=== PATIENT | female | born 2000 | race Two or more races ===

== ENCOUNTER 2020-09-08 13:32 | Emergency (ER) | payer OTHER, SELFPAY ==
--- NOTE | ~2020-09-08 | XR_ITS ---
EXAMINATION: XR CHEST CLINICAL INFORMATION: Cough and SOB. COMPARISON: None TECHNIQUE: Frontal view of the chest was obtained. FINDINGS: No significant abnormality is noted involving the heart, lungs, mediastinum, bony thorax or soft tissues. XR/XR chest 1V IMPRESSION: Unremarkable chest exam
--- NOTE | 2020-09-08 14:02 | ECG_ITS ---
Test Reason : CHEST PAIN Blood Pressure : / mmHG Vent. Rate : 112 BPM Atrial Rate : 112 BPM P-R Int : 146 ms QRS Dur : 076 ms QT Int : 294 ms P-R-T Axes : 071 066 048 degrees QTc Int : 401 ms Sinus tachycardia Otherwise normal ECG No previous ECGs available Referred By: Generic ED Physician Electronically Signed By:VAMSI HAMILTON
[2020-09-08 14:08] VITALS: BP 129/79; PULSE 112; RESP 24; TEMP 36.9; O2SAT 96; BMI 27.8
[2020-09-08 16:07] VITALS: BP 116/69; PULSE 105; RESP 16; TEMP 37.8; O2SAT 95
--- NOTE | 2020-09-08 16:16 | ED.CHESTPAIN ---
HPI - Chest Pain General Chief Complaint: Chest Pain Stated Complaint: severe chest pain Time Seen by Provider: 09/08/20 16:15 Source: patient Mode of arrival: ambulatory Limitations: no limitations History of Present Illness HPI narrative: No significant past medical history strong family history of asthma and family , complaining of dry cough with wheezing see using albuterol inhaler but never been diagnosed for asthma complaining of chest pain when taking a deep breath with cough. No fever no chills no palpitation no leg swelling Related Data Previous Rx's Medication Instructions Recorded albuterol sulfate [Proventil HFA] 2 puff INHALATION Q4-6H PRN #8.5 g 09/08/20 azithromycin [Zithromax TRI-MAGDALENO] 500 mg PO DAILY 3 Days #3 tab 09/08/20 codeine-guaifenesin 10 ml PO Q6H PRN #237 ml 09/08/20 prednisone 40 mg PO DAILY #10 tab 09/08/20 Allergies Allergy/AdvReac Type Severity Reaction Status Date / Time No Known Allergies Allergy Unverified 12/13/19 16:57 Review of Systems Review of Systems: Constitutional : No Weight loss, No Fever, No Chills ENT/Mouth : No sore throat, No Rhinorrhea Eyes: No Eye Pain, No Swelling Cardiovascular : ++ Chest Pain, no palpitations Respiratory :+++ Cough, No Sputum, ++ shortness of breath Gastrointestinal : no Nausea, No Vomiting, No Diarrhea, No abdominal Pain, no black stools Genitourinary : No Dysuria, No Urinary Frequency Musculoskeletal : No joint pain, No Myalgias, No Joint Swelling Skin : No Skin Lesions, No rash Neuro : No Weakness, No Numbness, No Dizziness, No Headache Psych : No Anxiety/Panic, No Depression Heme/Lymph: No Bruising, No Lymphadenopathy Endocrine : No Polyuria, No Polydipsia All other systems reviewed and are negative [facility] Social History Social History Alcohol intake: never Patient Tobacco Use Status: Never used Tobacco Use of substances other than those prescribed or required for medical reasons: Yes Substance Use Type: Marijuana Advance Directives: Yes Advance Directives Information Provided: Yes Advance Directives on File: No Patient : No Physical Exam Vital Signs: Vital Signs: Last Vital Signs Temp 100.1 F 09/08/20 16:07 Pulse 104 H 09/08/20 16:47 Resp 16 09/08/20 16:07 BP 116/69 09/08/20 16:07 Pulse Ox 95 09/08/20 16:07 Body Mass Index 27.8 Appearance: Alert. Oriented X3. No acute distress. Frequent dry cough++ Eyes: PERRLA, No Nystagmus ENT: Pharynx normal. Oral Mucosa moist Neck: Normal inspection. Neck supple. CVS: Normal heart rate and rhythm. Pulses normal. Respiratory: No respiratory distress. Equal air entry bilateral, bilateral wheezing ++ no rales Abdomen: Soft and nontender. Bowel sounds are present, no mass palpable, no CVA tenderness Skin: Skin warm and dry. Normal skin color. Normal skin turgor. Extremities: No lower extremity edema. No calf tenderness Neuro: Oriented X 3. No motor deficit. No sensory deficit. MDM - Chest Pain MDM Narrative Medical decision making narrative: Patient likely with asthma chest x-ray negative will discharge patient home on Z-Magdaleno prednisone and albuterol Lab Data Attestation: I reviewed the patient's lab results. Labs: Lab Results 09/08/20 Range/Units 16:31 COVID-19 ([facility]OS[facility]) Negative (Negative) COVID-19 Clin Com See Note Discharge Plan Discharge Clinical Impression: Acute asthmatic bronchitis Patient Disposition: Home, Self-Care Instructions: Asthma (ED) Additional Instructions: Take medication as prescribed. Cough syrup as prescribed Antibiotic as advised Follow with PCP Prescriptions: New prednisone 20 mg tablet 40 mg PO DAILY Qty: 10 RF: 0 azithromycin [Zithromax TRI-MAGDALENO] 500 mg tablet 500 mg PO DAILY 3 Days Qty: 3 RF: 0 codeine-guaifenesin 10-100 mg/5 mL liquid 10 ml PO Q6H PRN (Reason: cough) Qty: 237 RF: 0 albuterol sulfate [Proventil HFA] 90 mcg/actuation HFA aerosol inhaler 2 puff inhalation Q4-6H PRN (Reason: shortness of breath or wheezing) Qty: 8.5 RF: 0
[2020-09-08] MEDS: guaiFEN/Codeine SF 200/20/10ML 10 ML LIQUID PO (16:30)
[2020-09-08] MEDS: predniSONE 20 MG TABLET 40 MG PO (16:30)
[2020-09-08] MEDS: Albuterol/Iprat 2.5/0.5MG 3 ML AMPUL.NEB INHALE (16:45)
[2020-09-08] MEDS: Albuterol Sulfate (0.083%) 2.5 MG/3 ML VIAL.NEB 5 MG INHALE (16:45)
[2020-09-08 16:47] VITALS: PULSE 104; O2SAT 95
[2020-09-08 16:56] LABS: COVID-19 Test Negative (Negative)
[2020-09-08 17:46] VITALS: BP 122/74; PULSE 92; RESP 16; TEMP 37.3; O2SAT 98
== END 2020-09-08 17:47 | disposition home or self-care (01) ==
PROVIDERS: Emergency Provider Internal Medicine
DX: J45.909 Unspecified asthma, uncomplicated (principal); Z20.822 Contact with and (suspected) exposure to COVID-19
CPT/HCPCS: 36415; 71045; 87635; 93005; 94640; 94644; 99284

== ENCOUNTER 2020-12-21 18:38 | Emergency (ER) | payer OTHER, MEDICAID, SELFPAY ==
--- NOTE | ~2020-12-21 | XR_ITS ---
EXAMINATION: XR KNEE, LEFT CLINICAL INFORMATION: Pain status post injury COMPARISON: None TECHNIQUE: Four views of the left knee. FINDINGS: No effusion. Patella and tibial femoral joint compartments appear intact. There is an avulsion type injury of the proximal fibula head which appears recent. XR/XR knee LT 4V IMPRESSION: Avulsion type fracture the proximal fibula head as above.
[2020-12-21 18:41] VITALS: BP 117/74; PULSE 86; RESP 18; TEMP 36.9; O2SAT 99; BMI 27.1
[2020-12-21] MEDS: Acetaminophen Oral Liquid 650 MG/20.3 ML SOLUTION PO (18:46)
--- NOTE | 2020-12-21 20:27 | ED.LOWEXIN ---
HPI - Extremity Injury (Lower) General Chief Complaint: Extremity Injury, Lower Stated Complaint: knee inj Time Seen by Provider: 12/21/20 20:25 Source: patient Mode of arrival: wheelchair Limitations: no limitations History of Present Illness HPI Narrative: Otherwise healthy 20-year-old female with no past medical or surgical history presents with complaint of left knee pain after she was playing in a jump house and lost her footing her boyfriend landed her knee. States having pain in the anterior knee since. States she heard a cracking sound. She otherwise denies any other injury. No head torso injury. No LOC. MD complaint: knee injury Place: home Severity: moderate Severity scale (1-10): 9 Relieving factors: immobilization Exacerbating factors: weight bearing and movement Context: fall Associated symptoms: snap/pop sensation, swelling and unable to bear weight Other symptoms: none Treatments prior to arrival: cold therapy Related Data Previous Rx's Medication Instructions Recorded albuterol sulfate 90 mcg/actuation 2 puff INHALATION Q4-6H PRN #8.5 g 09/08/20 aerosol inhaler (Proventil HFA) azithromycin 500 mg tablet 500 mg PO DAILY 3 Days #3 tab 09/08/20 (Zithromax TRI-MAGDLAENO) codeine 10 mg-guaifenesin 100 mg/5 10 ml PO Q6H PRN #237 ml 09/08/20 mL oral liquid prednisone 20 mg tablet 40 mg PO DAILY #10 tab 09/08/20 ibuprofen 800 mg tablet 800 mg PO Q8H PRN #30 tab 12/21/20 Allergies Allergy/AdvReac Type Severity Reaction Status Date / Time No Known Allergies Allergy Verified 12/21/20 18:40 Review of Systems Review of Systems: Constitutional: No Weight loss, No Fever, No Chills, No Night Sweats, No Fatigue, No Malaise ENT/Mouth: No Hearing loss, No Ear Pain, No Nasal Congestion, No Sinus Pain, No Hoarseness, No sore throat, No Rhinorrhea, No Swallowing Difficulty Eyes: No Eye Pain, No Swelling, No Redness, No Foreign Body, No Discharge, No Vision Changes Cardiovascular: No Chest Pain, No SOB, No Dyspnea on Exertion, No Orthopnea, No Edema, No Palpitations Respiratory: No Cough, No Sputum, No Wheezing, No Dyspnea Gastrointestinal: No Nausea, No Vomiting, No Diarrhea, No Constipation, No abdominal Pain, No Hematochezia, No Melena Genitourinary: no irregular bleeding, No Dysuria, No Urinary Frequency, No Hematuria, No Urinary Incontinence, No Urgency, No Flank Pain, No Urinary Flow Changes, No Hesitancy Musculoskeletal: No joint pain, No Myalgias, No Joint Swelling Skin: No Skin Lesions, No rash Neuro: No Weakness, No Numbness, No Paresthesias, No Loss of Consciousness, No Dizziness, No Headache Psych: No Social Issues Heme/Lymph: No Bruising, No Bleeding,No Lymphadenopathy Endocrine: No Polyuria, No Polydipsia, No Temperature Intolerance [facility] Social History Social History Alcohol intake: never Patient Tobacco Use Status: Never used Tobacco Substance Use Type: Marijuana Advance Directives: No Advance Directives Information Provided: Yes Patient : No Physical Exam Vital Signs: Vital Signs: Last Vital Signs Temp 98.4 F 12/21/20 18:41 Pulse 86 12/21/20 18:41 Resp 18 12/21/20 18:41 BP 117/74 12/21/20 18:41 Pulse Ox 99 12/21/20 18:41 Body Mass Index 27.1 Const: General: cooperative and healthy appearing; No acute distress or intoxicated appearing Nutritional Appearance: average body habitus Orientation/consciousness: patient oriented x3 HENMT: Head: Yes normal to inspection Ears: hearing grossly normal bilaterally Eyes: General: appearance normal, both eyes and all related structures Visual May: normal visual may by confrontation Neck: Neck: Yes normal visual inspection, No positive Brudzinski's sign, No positive Kernig's sign and No tender Thyroid: Thyroid normal Chest: Chest palpation & inspection: normal inspection of the chest Resp: Effort & Inspection: normal respiratory effort Auscultation: clear to auscultation bilaterally Cardio: Jugular venous distension: no JVD Rate: regular rate Rhythm: regular rhythm Heart sounds: S1 normal heart sound present and S2 normal heart sound present GI: Inspection: Yes normal to inspection Percussion: Yes normal to percussion Auscultation: normal bowel sounds : General: Yes no CVA tenderness Back/Spine/Pelvis: Back: no CVA tenderness Skin: General skin exam: no rashes or lesions noted Neuro: General: patient oriented x3 Extrem: General: Yes normal to inspection Elbow/forearm/wrist images: 1. Slight swelling, tender to palpation. Course Reevaluation(s) Reevaluation #1: Case discussed with Orthopedics, placed in posterior long leg splint. Neurovascularly intact. Crutches, outpatient follow-up with orthopedics. Consultations Consultation #1: Orthopedic ANTIONE Carroll MDM - Extremity Injury (Lower) Differential Diagnosis Differential diagnosis: Likely acute internal derangement of knee; Unlikely fracture of femur, fracture of hip, puncture wound of foot or fracture of toe Medical Records Attestation: I reviewed the patient's medical records. Lab Data Attestation: I reviewed the patient's lab results. Imaging Data Left knee x-ray: Radiologist's impression: [address] [address] XRay Report Signed Patient: Neema Carranza MR#: [id number] : 2000 Acct:[id number] Age/Sex: 20 / F ADM Date: 12/21/20 Loc: [facility].ED Attending Dr: Ordering Physician: Generic ED Physician Date of Service: 12/21/20 Procedure(s): XR knee LT 4V Accession Number(s): [id number] cc: Generic ED Physician~ EXAMINATION: XR KNEE, LEFT CLINICAL INFORMATION: Pain status post injury? COMPARISON: None? TECHNIQUE: Four views of the left knee. FINDINGS: No effusion. Patella and tibial femoral joint compartments appear intact. There is an avulsion type injury of the proximal fibula head which appears recent.? XR/XR knee LT 4V IMPRESSION: Avulsion type fracture the proximal fibula head as above. ? Dictated By: GABO ALTMAN MD Signed By: <Electronically signed by GABO ALTMAN MD in OV> 12/21/201915 DD/ 04 TD/TT:? Air Director: SL Procedures Orthopedic Splinting/Casting Injury #1: Side: left Other Orthopedic Equipment: crutches Additional Comments: Left posterior long-leg Discharge Plan Discharge Clinical Impression: Closed fracture of knee region Patient Disposition: Home, Self-Care Instructions: Leg Fracture (ED) Additional Instructions: Rest, ice, compress, elevate Crutches Follow-up with us because discussed Return if any concerns worsening symptoms Thank you Prescriptions: New ibuprofen 800 mg tablet 800 mg PO Q8H PRN (Reason: pain) Qty: 30 RF: 0 No Action prednisone 20 mg tablet 40 mg PO DAILY Qty: 10 RF: 0 azithromycin [Zithromax TRI-MAGDALENO] 500 mg tablet 500 mg PO DAILY 3 Days Qty: 3 RF: 0 codeine-guaifenesin 10-100 mg/5 mL liquid 10 ml PO Q6H PRN (Reason: cough) Qty: 237 RF: 0 albuterol sulfate [Proventil HFA] 90 mcg/actuation HFA aerosol inhaler 2 puff inhalation Q4-6H PRN (Reason: shortness of breath or wheezing) Qty: 8.5 RF: 0 Referrals: Rehan Fenton MD [Physician] - 2 days Stand Alone Forms: Work/School Release
--- NOTE | 2020-12-21 21:03 | PC.NURSE ---
POSTERIOR LONG LEG SPLINT APPLIED TO LEFT LEG +CMS CHECKED BY JESSICA COOK.
== END 2020-12-21 21:05 | disposition home or self-care (01) ==
PROVIDERS: Emergency Provider Emergency Medicine
DX: S82.002A Unspecified fracture of left patella, initial encounter for closed fracture (principal); M25.562 Pain in left knee; F12.90 Cannabis use, unspecified, uncomplicated; W01.10XA Fall on same level from slipping, tripping and stumbling with subsequent striking against unspecified object, initial encounter; Y93.9 Activity, unspecified; Y92.838 Other recreation area as the place of occurrence of the external cause; Y99.9 Unspecified external cause status; Z79.899 Other long term (current) drug therapy
CPT/HCPCS: 29505; 73564; 99283; 99284

== ENCOUNTER → 2020-12-25 14:51 | Outpatient (BNVA) | payer OTHER, SELFPAY | PROVIDERS: Visit Provider Physician Assistant ==

== ENCOUNTER 2021-01-07 18:51 | Outpatient (REF) | payer OTHER, SELFPAY ==
--- NOTE | ~2021-01-07 | MR_ITS ---
EXAMINATION: MR KNEE WITHOUT CONTRAST, LEFT CLINICAL INFORMATION: Left knee pain and swelling. COMPARISON: Left knee radiographs dated 12/21/2020. TECHNIQUE: MRI of the knee without contrast was performed using routine sequences on a high-field scanner. FINDINGS: MENISCI: Medial Meniscus: Intact Lateral Meniscus: Intact LIGAMENTS: Cruciate: Increased T2 signal throughout the anterior cruciate ligament, consistent with a grade 1 sprain. No measurable ligament defect. Intact posterior cruciate ligament. Collateral: Intact EXTENSOR MECHANISM: Intact ARTICULAR CARTILAGE/BONE: Patellofemoral Compartment: Normal Medial Compartment: Intact articular cartilage. Prominent marrow edema throughout the anterior and posterior tibial plateau without a definite fracture line, consistent with osseous contusions. Additional more mild focal edema within the anterior aspect of the medial trochlea. Lateral Compartment: Intact articular cartilage. Prominent marrow edema within the anterior and posterior aspect of the lateral tibial plateau, consistent with osseous contusions. More focal marrow edema within the anterior aspect of the lateral trochlea. Nondisplaced fracture through the proximal most aspect of the fibula with prominent adjacent marrow edema as well as adjacent soft tissue edema. JOINT FLUID AND BURSAE: Moderate joint effusion. Trace Cortes's cyst. Edema along the periphery of the medial gastrocnemius muscle, which could be related to cyst leak or rupture. MR/MR knee LT wo con IMPRESSION: 1. Prominent osseous contusions throughout the medial and lateral tibial plateau with more mild osseous contusions at the anterior aspect of the medial and lateral trochlea. No definite fracture line. 2. Moderate joint effusion and trace Cortes's cyst. 3. Probable grade 1 sprain of the anterior cruciate ligament. 4. No meniscal tear.
== END 2021-01-07 18:52 | disposition home or self-care (01) ==
LOC: HO.MRI 18:51
PROVIDERS: Visit Provider Physician Assistant
DX: S83.207A Unspecified tear of unspecified meniscus, current injury, left knee, initial encounter (principal); S82.832A Other fracture of upper and lower end of left fibula, initial encounter for closed fracture; S83.512A Sprain of anterior cruciate ligament of left knee, initial encounter; S83.422A Sprain of lateral collateral ligament of left knee, initial encounter
CPT/HCPCS: 73721

== ENCOUNTER → 2021-01-29 14:42 | Outpatient (BNVA) | payer OTHER, SELFPAY | PROVIDERS: Visit Provider Physician Assistant ==

== ENCOUNTER → 2021-04-02 09:21 | Outpatient (BNVA) | payer OTHER, SELFPAY | PROVIDERS: Visit Provider Physician Assistant ==